=== PATIENT | male | born 1975 | race Caucasian/White ===

== ENCOUNTER 2018-05-07 22:30 | Emergency (ER) | payer BC, OTHER, SELFPAY ==
[2018-05-07] MEDS ORDERED: NA CHLORIDE 0.9% 1,000 ML ONE (23:06)
[2018-05-07 23:17] LABS: Absolute Lymphocytes (CBC) 2.7 K/uL (0.7-4.9); Absolute Monocytes 1.1 K/uL (0.1-1.3); Basophils % 0.8 % (0-1.3); Eosinophils % 2.4 % (0-4.4); Hematocrit 42.2 % (39.6-49.0); Lymphocytes % 26.6 % (15.3-44.8); MCH 30.8 pg (27.0-35.0); MPV 6.8 fL (7.6-11.3); Monocytes % 10.5 % (3.3-12.3); RBC Red Blood Cell Count 4.86 M/uL (4.33-5.43)
[2018-05-07 23:30] LABS: Potassium 3.9 mmol/L (3.5-5.1)
--- NOTE | 2018-05-08 02:41 | ER ---
Nurse's Notes [facility] Name: Maxime Kohli Age: 42 yrs Sex: Male : 1975 Arrival Date: 05/07/2018 Time: 22:32 Bed 18 Private MD: Diagnosis: Cellulitis and reactive adenitis right groin. Possible abscess Presentation: 05/07 22:45 Presenting complaint: Patient states: he has a lump on his right groin which is getting bb bigger and is red and painful since . Transition of care: patient was not received from another setting of care. Onset of symptoms was May 05, 2018. Risk Assessment: Do you want to hurt yourself or someone else? Patient reports no desire to harm self or others. Initial Sepsis Screen: Does the patient meet any 2 criteria? No. Patient's initial sepsis screen is negative. Does the patient have a suspected source of infection? No. Patient's initial sepsis screen is negative. Care prior to arrival: None. 22:45 Method Of Arrival: Ambulatory bb 22:45 Acuity: WILLIE 4 bb Historical: - Allergies: 22:47 Codeine; bb 22:47 PENICILLINS; bb - Home Meds: 22:47 None [Active]; bb - PMHx: 22:47 hypoglycemia; meningitis; bb - PSHx: 22:47 Hernia repair; Tonsillectomy; Ear Tubes; bb - Immunization history:: Adult Immunizations up to date. - Social history:: Smoking status: Patient/guardian denies using tobacco, Patient/guardian denies using alcohol, street drugs. - Ebola Screening: : No symptoms or risks identified at this time. Screenin:08 Abuse screen: Denies threats or abuse. Nutritional screening: No deficits noted. jd3 Tuberculosis screening: No symptoms or risk factors identified. Fall Risk IV access (20 points). Ambulatory Aid- None/Bed Rest/Nurse Assist (0 pts). Gait- Normal/Bed Rest/Wheelchair (0 pts) Mental Status- Oriented to own ability (0 pts). Total Suarez Fall Scale indicates No Risk (0-24 pts). Assessment: 22:49 General: Appears in no apparent distress. uncomfortable, Behavior is calm, cooperative, jd3 appropriate for age. Pain: Complains of pain in groin Quality of pain is described as aching. Neuro: Level of Consciousness is awake, alert, obeys commands, Oriented to person, place, time, situation, Appropriate for age. Cardiovascular: Capillary refill < 3 seconds Patient's skin is warm and dry. Respiratory: Airway is patent Respiratory effort is even, unlabored, Respiratory pattern is regular, symmetrical, Denies shortness of breath. GI: No signs and/or symptoms were reported involving the gastrointestinal system. : No signs and/or symptoms were reported regarding the genitourinary system. EENT: No signs and/or symptoms were reported regarding the EENT system. Derm: Skin is intact, Skin is dry, Skin is normal, Skin temperature is warm Wound noted groin Wound is lemon sized swollen area swollen and red. Musculoskeletal: Circulation, motion, and sensation intact. Range of motion: intact in all extremities. 23:27 Reassessment: Patient appears in no apparent distress at this time. Patient and/or jd3 family updated on plan of care and expected duration. Pain level reassessed. Patient is alert, oriented x 3, equal unlabored respirations, skin warm/dry/pink. 05/08 00:23 Reassessment: Patient appears in no apparent distress at this time. Patient and/or jd3 family updated on plan of care and expected duration. Pain level reassessed. Patient is alert, oriented x 3, equal unlabored respirations, skin warm/dry/pink. 00:56 Reassessment: Patient appears in no apparent distress at this time. Patient and/or jd3 family updated on plan of care and expected duration. Pain level reassessed. Patient is alert, oriented x 3, equal unlabored respirations, skin warm/dry/pink. 02:02 Reassessment: Patient appears in no apparent distress at this time. Patient and/or jd3 family updated on plan of care and expected duration. Pain level reassessed. Patient is alert, oriented x 3, equal unlabored respirations, skin warm/dry/pink. pt resting in bed, no distress noted at this time. 02:53 Reassessment: will discharge after Vancomycin infusion is complete. tl2 03:11 Reassessment: Patient appears in no apparent distress at this time. No changes from jd3 previously documented assessment. Patient and/or family updated on plan of care and expected duration. Pain level reassessed. Patient is alert, oriented x 3, equal unlabored respirations, skin warm/dry/pink. 03:40 Reassessment: Patient appears in no apparent distress at this time. No changes from jd3 previously documented assessment. Patient and/or family updated on plan of care and expected duration. Pain level reassessed. Patient is alert, oriented x 3, equal unlabored respirations, skin warm/dry/pink. 04:10 Reassessment: Patient appears in no apparent distress at this time. Patient and/or tl2 family updated on plan of care and expected duration. Pain level reassessed. Patient is alert, oriented x 3, equal unlabored respirations, skin warm/dry/pink. Pt verbalized understanding of discharge instructions, need for follow up and prescription usage. Vital Signs: 05/07 22:47 BP 126 / 87; Pulse 87; Resp 16 S; Temp 98.1(O); Pulse Ox 99% on R/A; Weight 108.86 kg bb (R); Height 5 ft. 10 in. (177.80 cm) (R); Pain 5/10; 23:27 BP 117 / 71; Pulse 86; Resp 16 S; Pulse Ox 97% on R/A; jd3 05/08 00:22 BP 105 / 62; Pulse 79; Resp 16 S; Pulse Ox 97% on R/A; jd3 00:55 BP 115 / 63; Pulse 76; Resp 16 S; Pulse Ox 97% on R/A; jd3 02:01 BP 110 / 68; Pulse 76; Pulse Ox 96% on R/A; jd3 02:55 BP 100 / 62; Pulse 74; Resp 17 S; Pulse Ox 95% on R/A; jd3 03:40 BP 119 / 83; Pulse 80; Resp 16 S; Pulse Ox 97% on R/A; jd3 04:10 BP 117 / 75; Pulse 77; Resp 18; Pulse Ox 97% on R/A; tl2 05/07 22:47 Body Mass Index 34.44 (108.86 kg, 177.80 cm) bb ED Course: 05/07 22:32 Patient arrived in ED. do 22:33 Devonte Blum MD is Attending Physician. pkl 22:44 Vidal Lyn RN is Primary Nurse. jd3 22:46 Triage completed. bb 22:47 Arm band placed on Patient placed in an exam room, on a stretcher, on pulse oximetry. bb Family accompanied patient. 23:05 Inserted saline lock: 20 gauge in right antecubital area, using aseptic technique. tl2 Blood collected. placed by lc Campos. 23:08 Patient has correct armband on for positive identification. Placed in gown. Bed in low jd3 position. Call light in reach. Side rails up X 1. Adult w/ patient. 05/08 00:58 Patient moved to [place] via wheelchair. kw1 01:07 CT Pelvis w cont In Process Unspecified. EDMS 01:09 CT completed. Patient tolerated procedure well. Patient moved back from [place]. kw1 02:39 Himanshu Davila MD is Referral Physician. pkl 04:10 No provider procedures requiring assistance completed. IV discontinued, intact, tl2 bleeding controlled, No redness/swelling at site. Pressure dressing applied. Administered Medications: 05/07 23:05 Drug: NS 0.9% 1000 ml Route: IV; Rate: 100 ml/hr; Site: right antecubital; jd3 05/08 04:12 Follow up: Response: No adverse reaction; IV Status: Order to discontinue infusion jd3 02:51 Drug: vancoMYCIN 1 grams Route: IVPB; Infused Over: 2 hrs; Site: right antecubital; jd3 04:12 Follow up: Response: No adverse reaction; IV Status: Completed infusion jd3 Outcome: 02:41 Discharge ordered by . pkl 04:12 Discharged to home ambulatory, with family. tl2 04:12 Condition: stable 04:12 Discharge instructions given to patient, family, Instructed on discharge instructions, follow up and referral plans. medication usage, Demonstrated understanding of instructions, follow-up care, medications, Prescriptions given X 2. 04:13 Patient left the ED. tl2 Signatures: Dispatcher [employer] Devonte Cartwright MD MD pkChuyita Dyer RN RN Aneta Bernal Taylor RN RN tl2 Vidal Lyn RN RN jd3 Gertrudis Valverde kw1
--- NOTE | 2018-05-08 02:42 | EDPHYS ---
Physician Documentation [facility] Name: Maxime Kohli Age: 42 yrs Sex: Male : 1975 Arrival Date: 05/07/2018 Time: 22:32 Bed 18 Private MD: ED Physician Devonte Blum HPI: 05/07 22:57 This 42 yrs old Male presents to ER via Ambulatory with complaints of Groin pkl Pain. 22:57 The patient presents with painful lump in right groin. Onset: The symptoms/episode pkl began/occurred 3 day(s) ago. Associated signs and symptoms: none. Historical: - Allergies: 22:47 Codeine; bb 22:47 PENICILLINS; bb - Home Meds: 22:47 None [Active]; bb - PMHx: 22:47 hypoglycemia; meningitis; bb - PSHx: 22:47 Hernia repair; Tonsillectomy; Ear Tubes; bb - Immunization history:: Adult Immunizations up to date. - Social history:: Smoking status: Patient/guardian denies using tobacco, Patient/guardian denies using alcohol, street drugs. - Ebola Screening: : No symptoms or risks identified at this time. ROS: 22:57 Eyes: Negative for injury, pain, redness, and discharge, ENT: Negative for injury, pkl pain, and discharge, Neck: Negative for injury, pain, and swelling, Cardiovascular: Negative for chest pain, palpitations, and edema, Respiratory: Negative for shortness of breath, cough, wheezing, and pleuritic chest pain. 22:57 Abdomen/GI: Positive for painful lump right groin. 22:57 Back: Negative for acute changes. 22:57 : Negative for urinary symptoms. 22:57 MS/extremity: Negative for acute changes. 22:57 Skin: Negative for rash. 22:57 Neuro: Negative for altered mental status. Exam: 22:57 Head/Face: Normocephalic, atraumatic. Eyes: Pupils equal round and reactive to light, pkl extra-ocular motions intact. Lids and lashes normal. Conjunctiva and sclera are non-icteric and not injected. Cornea within normal limits. Periorbital areas with no swelling, redness, or edema. ENT: Nares patent. No nasal discharge, no septal abnormalities noted. Tympanic membranes are normal and external auditory canals are clear. Oropharynx with no redness, swelling, or masses, exudates, or evidence of obstruction, uvula midline. Mucous membranes moist. Neck: Trachea midline, no thyromegaly or masses palpated, and no cervical lymphadenopathy. Supple, full range of motion without nuchal rigidity, or vertebral point tenderness. No Meningismus. Chest/axilla: Normal chest wall appearance and motion. Nontender with no deformity. No lesions are appreciated. Cardiovascular: Regular rate and rhythm with a normal S1 and S2. No gallops, murmurs, or rubs. Normal PMI, no JVD. No pulse deficits. Respiratory: Lungs have equal breath sounds bilaterally, clear to auscultation and percussion. No rales, rhonchi or wheezes noted. No increased work of breathing, no retractions or nasal flaring. 22:57 Abdomen/GI: Palpation: soft, mild pain right groin, possible cyst, lymph node or abscess. 22:57 Back: Exam negative for acute changes. 22:57 : Exam negative for acute changes. 22:57 Musculoskeletal/extremity: Exam is negative for acute changes. 22:57 Skin: Exam negative for rash. 22:57 Neuro: Orientation: is normal, Mentation: is normal, Cranial nerves: grossly normal, Motor: is normal. Vital Signs: 22:47 BP 126 / 87; Pulse 87; Resp 16 S; Temp 98.1(O); Pulse Ox 99% on R/A; Weight 108.86 kg bb (R); Height 5 ft. 10 in. (177.80 cm) (R); Pain 5/10; 23:27 BP 117 / 71; Pulse 86; Resp 16 S; Pulse Ox 97% on R/A; jd3 05/08 00:22 BP 105 / 62; Pulse 79; Resp 16 S; Pulse Ox 97% on R/A; jd3 00:55 BP 115 / 63; Pulse 76; Resp 16 S; Pulse Ox 97% on R/A; jd3 02:01 BP 110 / 68; Pulse 76; Pulse Ox 96% on R/A; jd3 02:55 BP 100 / 62; Pulse 74; Resp 17 S; Pulse Ox 95% on R/A; jd3 03:40 BP 119 / 83; Pulse 80; Resp 16 S; Pulse Ox 97% on R/A; jd3 04:10 BP 117 / 75; Pulse 77; Resp 18; Pulse Ox 97% on R/A; tl2 05/07 22:47 Body Mass Index 34.44 (108.86 kg, 177.80 cm) bb MDM: 05/07 22:33 Patient medically screened. pkl 05/08 02:39 Data reviewed: vital signs, nurses notes, lab test result(s), radiologic studies, CT pkl scan. 05/07 22:56 Order name: CBC with Diff; Complete Time: 23:20 pkl 05/07 22:56 Order name: Chem 7; Complete Time: 23:44 pkl 05/07 22:58 Order name: IV Saline Lock; Complete Time: 23:05 jd3 05/07 23:46 Order name: CT Pelvis w cont pkl Administered Medications: 05/07 23:05 Drug: NS 0.9% 1000 ml Route: IV; Rate: 100 ml/hr; Site: right antecubital; jd3 05/08 04:12 Follow up: Response: No adverse reaction; IV Status: Order to discontinue infusion jd3 02:51 Drug: vancoMYCIN 1 grams Route: IVPB; Infused Over: 2 hrs; Site: right antecubital; jd3 04:12 Follow up: Response: No adverse reaction; IV Status: Completed infusion jd3 Disposition: 05/08/18 02:41 Discharged to Home. Impression: Cellulitis and reactive adenitis right groin. Possible abscess. - Condition is Stable. - Prescriptions for Clindamycin HCl 300 mg Oral Capsule - take 1 capsule by ORAL route every 6 hours for 7 days; 28 capsule. Ultram 50 mg Oral Tablet - take 1 tablet by ORAL route every 8 hours As needed; 20 tablet. - Medication Reconciliation Form, Thank You Letter, Antibiotic Education, Prescription Opioid Use form. - Follow up: Himanshu Davila MD; When: 2 - 3 days; Reason: Re-evaluation by your physician. - Problem is new. - Symptoms are unchanged. Signatures: Dispatcher [employer] EDMS Devonte Blum MD MD pkl Chuyita Hyatt RN RN Ce Ferraro RN RN tl2 Vidal Lyn RN RN jd3 Corrections: (The following items were deleted from the chart) 04:13 02:41 05/08/2018 02:41 Discharged to Home. Impression: Cellulitis and reactive adenitis tl2 right groin. Possible abscess. Condition is Stable. Forms are Medication Reconciliation Form, Thank You Letter, Antibiotic Education, Prescription Opioid Use. Follow up: Dr. Himanshu Davila; When: 2 - 3 days; Reason: Re-evaluation by your physician. Problem is new. Symptoms are unchanged. pkl
[2018-05-08] MEDS ORDERED: VANCOMYCIN 1 GM/250 ML BAG ONE (02:51)
--- NOTE | 2018-05-08 12:27 | RAD REPORT ---
EXAM DESCRIPTION: CT - Pelvis W/Cont - 05/08/2018 6:45 am CLINICAL HISTORY: painful lump right groin COMPARISON: No comparisons TECHNIQUE: All CT scans are performed using dose optimization technique as appropriate and may inclu de automated exposure control or mA/KV adjustment according to patient size. FINDINGS: Enlarged lymph nodes are present in the right groin, largest measuring 14 mm and 18 mm. Sk in thickening with subcutaneous fat reticulation is seen in the region compatible with cellulitis. No drainable fluid collection seen. No extension of inflammatory changes into the pelvis. No hernia is present. IMPRESSION: Right groin cellulitis and adenitis is noted.
== END 2018-05-08 04:13 | disposition home or self-care (01) ==
LOC: ER 22:30
DX: L03.314 Cellulitis of groin (principal); I88.9 Nonspecific lymphadenitis, unspecified; Z88.6 Allergy status to analgesic agent; Z88.0 Allergy status to penicillin
CPT/HCPCS: 36415; 72193; 80048; 85025; 96361; 96365; 99284; J3370; J7030; Q9967

== ENCOUNTER 2020-11-05 09:46 | Observation (INO) | payer OTHER ==
--- OUTSIDE RECORDS SUMMARY | 2020-11-05 09:49 | XMS REPORT | Continuity of Care Document ---
:1975 Author Organization [facility] t Address [address] [place] [address] Care Team Providers Name Role Phone Lab, Fam Pob I Attending Clinician Unavailable Nurse, Urgent Attending Clinician Unavailable Doctor Unassigned, Name Attending Clinician Unavailable Problems This patient has no known problems. Allergies, Adverse Reactions, Alerts This patient has no known allergies or adverse reactions. Medications This patient has no known medications. Procedures This patient has no known procedures. Encounters Start End Encounter Admission Attending Care Care Encounter Source Date/Time Date/Time Type Type Clinicians Facility Department ID 2020-10-01 2020-10-01 Laboratory Lab, [facility] [id number] 17:46:00 18:06:00 Only Fam Pob I Health [id number] [place] [id number] [facility] [id number] [address]al [address] 2020-02-25 2020-02-25 Letter Nurse, [facility] [id number] 00:00:00 00:00:00 (Out) Urgent HEALTH [id number] [facility] [phone] Primary & [facility] Specialty Care 2020-02-24 2020-02-24 Laboratory Lab, [facility] [id number] 13:05:00 13:25:00 Only Fam Pob I Health [id number] [facility] [id number] nal [address] 2020-02-24 2020-02-24 Letter Doctor LASHONDA [id number] 00:00:00 00:00:00 (Out) Unassigned, SILVIO [id number] [place] [facility] [phone] [id number] Results This patient has no known results.
--- NOTE | 2020-11-05 10:25 | RAD REPORT ---
EXAM DESCRIPTION: CT - Ct Stroke Brain Wo Cont - 11/05/2020 10:17 am CLINICAL HISTORY: Numbness COMPARISON: none TECHNIQUE: Computed axial tomography of the head was obtained. All CT scans are performed using dose optimization technique as appropriate and may include automated exposure control or mA/KV adjustment according to patient size. FINDINGS: An intracranial bleed is not seen . The ventricles are normal in caliber. No extra-axial fluid collection is noted. Fluid within the sinuses/ mastoids is not seen. IMPRESSION: No acute intracranial abnormality is seen. If patient's symptoms persist MRI of the bra in would be recommended. Didi James of the emergency room was notified at 10:20 a.m. November 05, 2020
[2020-11-05 10:38] LABS: Absolute Lymphocytes (CBC) 2.3 K/uL (0.7-4.9); Basophils % 0.7 % (0-1.3); Lymphocytes % 25.1 % (15.3-44.8); MPV 6.8 fL (7.6-11.3); RBC Red Blood Cell Count 4.96 M/uL (4.33-5.43)
[2020-11-05 10:44] LABS: Protime INR 1.08
--- NOTE | 2020-11-05 11:33 | RAD REPORT ---
EXAM DESCRIPTION: Aimee Single View11/05/2020 11:10 am CLINICAL HISTORY: Chest pain COMPARISON: none FINDINGS: The lungs appear clear of acute infiltrate. The heart is normal size IMPRESSION: No acute abnormalities displayed
[2020-11-05 12:05] LABS: ALT/SGPT 61 U/L (12-78); AST/SGOT 27 U/L (15-37); Albumin 4.1 g/dL (3.4-5.0); Alkaline Phosphatase 83 U/L (45-117); BUN Blood Urea Nitrogen 12 mg/dL (7-18); Bicarbonate 26 mmol/L (21-32); Bilirubin Direct 0.1 mg/dL (0-0.2); Bilirubin Total 0.5 mg/dL (0.2-1.0); Glucose Level 102 mg/dL (74-106); NT PRO-BNP 8 pg/mL (<125); Potassium 3.9 mmol/L (3.5-5.1); Protein, Total 7.7 g/dL (6.4-8.2); Sodium Level 141 mmol/L (136-145); Troponin (Emerg Dept Use Only) < 0.02 ng/mL (0.0-0.045)
--- NOTE | 2020-11-05 12:10 | EDPHYS ---
Physician Documentation [facility] Name: Maxime Kohli Age: 45 yrs Sex: Male : 1975 Arrival Date: 11/05/2020 Time: 09:49 Bed 18 Private MD: ED Physician Ryan Wilcox HPI: 11/05 11:39 This 45 yrs old Male presents to ER via Ambulatory with complaints of Chest kb Pain. 11:39 The patient or guardian reports chest pain that is located primarily in the chest kb diffusely. Onset: yesterday. The pain does not radiate. Associated signs and symptoms: Pertinent positives: tingling/numbness to face and left side. The chest pain is described as a pressure, tightness. Duration: The patient or guardian reports a single episode, that is still ongoing. Modifying factors: The symptoms are alleviated by nothing. the symptoms are aggravated by nothing. Severity of pain: At its worst the pain was mild moderate in the emergency department the pain is unchanged. The patient has experienced a previous episode. The patient has been recently seen by a physician: the ER physician, out of Town, 1 week(s) ago. Pt reports chest pain that started yesterday at 0900. States it has been constant since onset. Today pt was sitting at desk and started having tingling/numbness to face and left side with blurry vision. States symptoms lasted about 20 minutes. States during that time he was unable to talk or move and then he felt confused. States his bp has been running high (140s/100s) since yesterday. Had high bp and chest pain last week as well, was evaluated by [place] and sent home. . Historical: - Allergies: 09:59 Codeine; hb 09:59 PENICILLINS; hb - PMHx: 09:59 HYPOGLYCEMIA; meningitis; hb - PSHx: 09:59 Hernia repair; Tonsillectomy; Ear Tubes; hb - Immunization history:: Adult Immunizations up to date. - Social history:: Smoking status: unknown. ROS: 11:38 Constitutional: Negative for fever, chills, and weight loss, Respiratory: Negative for kb shortness of breath, cough, wheezing, and pleuritic chest pain, Abdomen/GI: Negative for abdominal pain, nausea, vomiting, diarrhea, and constipation, MS/Extremity: Negative for injury and deformity, Skin: Negative for injury, rash, and discoloration. 11:38 Cardiovascular: Positive for chest pain, Negative for edema, orthopnea, palpitations, paroxysmal nocturnal dyspnea. 11:38 Neuro: Positive for numbness, tingling, visual changes, weakness. Exam: 11:39 Constitutional: This is a well developed, well nourished patient who is awake, alert, kb and in no acute distress. Head/Face: Normocephalic, atraumatic. Chest/axilla: Normal chest wall appearance and motion. Cardiovascular: Regular rate and rhythm with a normal S1 and S2. No gallops, murmurs, or rubs. No pulse deficits. Respiratory: Respirations even and unlabored. No increased work of breathing, no retractions or nasal flaring. Abdomen/GI: Soft, non-tender. No distention Skin: Warm, dry with normal turgor. Normal color. MS/ Extremity: Pulses equal, no cyanosis. Neurovascular intact. Full, normal range of motion. Neuro: Awake and alert, GCS 15, oriented to person, place, time, and situation. Moves all extremities. Normal gait. Vital Signs: 10:01 BP 131 / 95; Pulse 89; Resp 20; Temp 98; Pulse Ox 99% ; Weight 117.93 kg; Height 5 ft. hb 10 in. (177.80 cm); 10:12 BP 143 / 93; Pulse 84; Resp 18; Pulse Ox 99% ; bw 11:05 BP 121 / 78; Pulse 81; Resp 20; Pulse Ox 98% on R/A; bw 13:11 BP 152 / 85; Pulse 97; Resp 26; Pulse Ox 97% on R/A; bw 10:01 Body Mass Index 37.30 (117.93 kg, 177.80 cm) hb MDM: 10:03 Patient medically screened. kb 11:37 Data reviewed: vital signs, nurses notes. Data interpreted: Pulse oximetry: on room air kb is 98 %. Interpretation: normal. 12:06 The patient was given aspirin in the Emergency Department. Counseling: I had a detailed kb discussion with the patient and/or guardian regarding: the historical points, exam findings, and any diagnostic results supporting the discharge/admit diagnosis, lab results, radiology results, the need for further work-up and treatment in the hospital. 11/05 10:04 Order name: Basic Metabolic Panel; Complete Time: 12:06 kb 11/05 10:04 Order name: CBC with Diff; Complete Time: 10:45 kb 11/05 10:04 Order name: LFT's; Complete Time: 12:06 kb 11/05 10:04 Order name: Magnesium; Complete Time: 12:06 kb 11/05 10:04 Order name: NT PRO-BNP; Complete Time: 12:06 kb 11/05 10:04 Order name: PT-INR; Complete Time: 10:48 kb 11/05 10:04 Order name: Troponin (emerg Dept Use Only); Complete Time: 12:06 kb 11/05 10:04 Order name: XRAY Chest (1 view); Complete Time: 11:34 kb 11/05 10:04 Order name: EKG; Complete Time: 10:05 kb 11/05 10:04 Order name: CT Stroke Brain w/o Contrast; Complete Time: 10:35 kb 11/05 13:57 Order name: SARS-COV-2 RT PCR; Complete Time: 14:08 EDMS 11/05 15:26 Order name: Troponin I; Complete Time: 15:32 EDMS 11/05 10:04 Order name: Cardiac monitoring; Complete Time: 10:35 kb 11/05 10:04 Order name: EKG - Nurse/Tech; Complete Time: 10:35 kb 11/05 10:04 Order name: IV Saline Lock; Complete Time: 10:35 kb 11/05 10:04 Order name: Labs collected and sent; Complete Time: 10:35 kb 11/05 10:04 Order name: O2 Per Protocol; Complete Time: 10:35 kb 11/05 10:04 Order name: O2 Sat Monitoring; Complete Time: 10:35 kb 11/05 10:43 Order name: Labs - recollect needed: recollect c7; Complete Time: 11:29 bd Administered Medications: 12:44 Drug: Aspirin Chewable Tablet 324 mg Route: PO; bw 17:10 Follow up: Response: No adverse reaction bw Disposition: 18:18 Co-signature as Attending Physician, Ryan Wilcox MD. rn Disposition: 11/05/20 12:09 Hospitalization ordered by Ranjit Velazquez for Observation. Preliminary diagnosis is Chest pain, unspecified. - Bed requested for Telemetry/MedSurg (Inpatient). - Status is Observation. bw - Condition is Stable. - Problem is new. - Symptoms have improved. Signatures: Dispatcher [employer] EDMS Jacob Didi, GRADES 6 THROUGH 8 TEACHER-C GRADES 6 THROUGH 8 TEACHER-Ckb Lili Rodriguez Stephanie, RN RN sv Ryan Wilcox MD MD rn Baxter, Heather, BARNEY CORLEY Sandoval, BARNEY Tamez RN bw Corrections: (The following items were deleted from the chart) 13:19 12:10 CORONAVIRUS+MR.LAB.BRZ ordered. EDCA EDMS 14:31 12:09 Hospitalization Ordered by Ranjit Velazquez for Observation. Preliminary diagnosis sv is Chest pain, unspecified. Bed requested for Telemetry/MedSurg (observation). Status is Observation. Condition is Stable. Problem is new. Symptoms have improved. kb 16:14 14:31 11/05/2020 12:09 Hospitalization Ordered by Ranjit Velazquez for Observation. sv Preliminary diagnosis is Chest pain, unspecified. Bed requested for [facility] ER HOLD. Status is Observation. Condition is Stable. Problem is new. Symptoms have improved. sv 17:11 16:14 11/05/2020 12:09 Hospitalization Ordered by Ranjit Velazquez for Observation. bw Preliminary diagnosis is Chest pain, unspecified. Bed requested for Telemetry/MedSurg (Inpatient). Status is Observation. Condition is Stable. Problem is new. Symptoms have improved. sv
--- NOTE | 2020-11-05 12:10 | ER ---
Nurse's Notes [facility] Name: Maxime Kohli Age: 45 yrs Sex: Male : 1975 Arrival Date: 11/05/2020 Time: 09:49 Bed 18 Private MD: Diagnosis: Chest pain, unspecified Presentation: 11/05 09:57 Chief complaint: Patient states: HTN has been ongoing, sitting at the computer today hb and started having chest tightness (started yesterday), blurry vision, left sided facial numbness and upper and lower lips, BP 146/101 today at 0915. Reports the only symptoms at this time are feeling flushed and chest tightness. Onset of symptoms was November 05, 2020. 09:57 Method Of Arrival: Ambulatory hb 09:57 Acuity: WILLIE 2 hb 10:01 Coronavirus screen: Client denies travel out of the [place] in the last 14 days. At this hb time, the client does not indicate any symptoms associated with coronavirus-19. Ebola Screen: No symptoms or risks identified at this time. Initial Sepsis Screen: Does the patient meet any 2 criteria? No. Patient's initial sepsis screen is negative. Does the patient have a suspected source of infection? No. Patient's initial sepsis screen is negative. Risk Assessment: Do you want to hurt yourself or someone else? Patient reports no desire to harm self or others. Triage Assessment: 17:09 General: Appears in no apparent distress. Behavior is calm, cooperative, appropriate bw for age. Pain:. Historical: - Allergies: 09:59 Codeine; hb 09:59 PENICILLINS; hb - PMHx: 09:59 HYPOGLYCEMIA; meningitis; hb - PSHx: 09:59 Hernia repair; Tonsillectomy; Ear Tubes; hb - Immunization history:: Adult Immunizations up to date. - Social history:: Smoking status: unknown. Screenin:12 Abuse screen: Denies threats or abuse. Nutritional screening: No deficits noted. bw Tuberculosis screening: No symptoms or risk factors identified. Fall Risk None identified. Assessment: 10:12 Pain: Pain radiates to left side of jaw Pain began 3 hours ago. Neuro: Reports numbness bw in left side of face. Cardiovascular: Rhythm is regular Chest pain is described as vague, is located in left chest wall. Respiratory: No deficits noted. GI: No deficits noted. : No deficits noted. 11:05 Reassessment: Patient appears in no apparent distress at this time. Patient and/or bw family updated on plan of care and expected duration. Pain level reassessed. Patient is alert, oriented x 3, equal unlabored respirations, skin warm/dry/pink. 13:11 Reassessment: Patient appears in no apparent distress at this time. Patient and/or bw family updated on plan of care and expected duration. Pain level reassessed. Patient is alert/active/playful, equal unlabored respirations, skin warm/dry/pink. 13:35 Reassessment: Called Dr Velazquez to get admission orders placed. sv Vital Signs: 10:01 BP 131 / 95; Pulse 89; Resp 20; Temp 98; Pulse Ox 99% ; Weight 117.93 kg; Height 5 ft. hb 10 in. (177.80 cm); 10:12 BP 143 / 93; Pulse 84; Resp 18; Pulse Ox 99% ; bw 11:05 BP 121 / 78; Pulse 81; Resp 20; Pulse Ox 98% on R/A; bw 13:11 BP 152 / 85; Pulse 97; Resp 26; Pulse Ox 97% on R/A; bw 10:01 Body Mass Index 37.30 (117.93 kg, 177.80 cm) hb ED Course: 09:49 Patient arrived in ED. ds1 09:57 Arm band placed on. hb 09:59 Triage completed. hb 10:02 Joi Sandoval, RN is Primary Nurse. bw 10:03 [facility] kb 10:03 Ryan Wilcox MD is Attending Physician. kb 10:12 Patient has correct armband on for positive identification. Call light in reach. Side bw rails up X2. case monitor on. Pulse ox on. NIBP on. Warm blanket given. 10:12 No provider procedures requiring assistance completed. Patient maintains SpO2 bw saturation greater than 95% on room air. 10:15 CT Stroke Brain w/o Contrast In Process Unspecified. EDMS 10:35 Initial lab(s) drawn, by me, sent to lab. EKG done, by ED staff, reviewed by Ryan Wilcox MD. Inserted saline lock: 20 gauge in right antecubital area, using aseptic technique. Blood collected. 11:01 XRAY Chest (1 view) Sent. bw 11:10 XRAY Chest (1 view) In Process Unspecified. EDMS 12:08 Ranjit Velazquez is Hospitalizing Provider. kb 12:27 COVID swab sent to lab. jp3 17:09 Patient admitted, IV remains in place. bw Administered Medications: 12:44 Drug: Aspirin Chewable Tablet 324 mg Route: PO; bw 17:10 Follow up: Response: No adverse reaction bw Outcome: 12:09 Decision to Hospitalize by Provider. kb 17:09 Admitted to Tele accompanied by tech. bw 17:09 Condition: stable 17:09 Discharge instructions given to patient. 17:11 Patient left the ED. Signatures: Dispatcher [employer] EDAR Didi James, PRIMARY CARE PHYSICIAN-C PRIMARY CARE PHYSICIAN-CkMajo Barnes, RN RN Zonia Joy ds1 Tarsha Crump RN RN Minh Mckeon, RN RN sr5 Scot Jones jp3 Joi Sandoval RN RN Corrections: (The following items were deleted from the chart) 10:00 09:57 Chief complaint: Patient states: HTN has been ongoing, sitting at the computer hb today and started having chest tightness, blurry vision, left sided facial numbness and upper and lower lips, BP 146/101. hb 10:02 09:57 Chief complaint: Patient states: HTN has been ongoing, sitting at the computer hb today and started having chest tightness (started yesterday), blurry vision, left sided facial numbness and upper and lower lips, BP 146/101 today at 0915 hb
[2020-11-05] MEDS ORDERED: ASPIRIN 81 MG CHEWABLE TABLET ONE (12:40)
--- NOTE | 2020-11-05 14:27 | P.HP ---
Certification for Inpatient Patient admitted to: Observation With expected LOS: <2 Midnights Practitioner: I am a practitioner with admitting privileges, knowledge of patient current condition, hospital course, and medical plan of care. Services: Services provided to patient in accordance with Admission requirements found in Title 42 Section 412.3 of the Code of Federal Regulations Patient History Date of Service: 11/05/20 Reason for admission: Chest pain, left-sided numbness. History of Present Illness: 45-year-old morbidly obese gentleman with a history of hypothyroidism, gout and recurrent hypoglycemia presented to the emergency department with a complaint of chest pain of sudden onset followed by tingling and numbness in the left face, left arm and leg and transient confusion. These symptoms occurred at the workplace. He was driven to the emergency department by his colleague. Patient described tightness in the anterior chest, associated with shortness of breath. He denied palpitation. He reports an episode of chest pain about 1 month ago for which he went to [place] emergency department for evaluation. Patient report nothing significant was communicated to him at [place]. emergency department. His numbness and tingling sensation resolved in the emergency department but was reporting residual chest tightness during my examination. EKG demonstrates sinu s rhythm with nonspecific ST-T changes. Initial troponin is negative. CT reports no acute intracranial changes. Chest x-ray shows no acute disease. Patient is placed under observation for TIA/stroke, and chest pain workup. Allergies codeine Allergy (Verified 11/05/20 13:24) Hives Penicillins Allergy (Verified 11/05/20 13:24) Hives - Past Medical/Surgical History -: Hypothyroidism -: Gout - Family History Mother -: Other (see notes) (Was abusing drugs) - Social History Smoking Status: Never smoker Alcohol use: No CD- Drugs: No Place of Residence: Home Review of Systems Other: Except as documented, all other systems reviewed and negative. Physical Examination - Physical Exam General: Alert, In no apparent distress, Oriented x3 HEENT: Normocephalic, PERRLA, Mucous membr. moist/pink, EOMI, Sclerae nonicteric Neck: Supple, 2+ carotid pulse no bruit, JVD not distended Respiratory: Clear to auscultation bilaterally, Normal air movement Cardiovascular: No edema, Normal pulses, Regular rate/rhythm, Normal S1 S2 Capillary refill: <2 Seconds Gastrointestinal: Normal bowel sounds, Soft and benign, Non-distended, No tenderness Musculoskeletal: No swelling, No tenderness Integumentary: No rashes, No erythema Neurological: Normal speech, Normal strength at 5/5 x4 extr, Cranial nerves 3-12 intact - Studies Laboratory Data (last 24 hrs) 11/05/20 11:28: Sodium 141, Potassium 3.9, BUN 12, Creatinine 0.84, Glucose 102, Magnesium 2.0, Total Bilirubin 0.5, AST 27, ALT 61, Alkaline Phosphatase 83 11/05/20 10:29: PT 12.4, INR 1.08 11/05/20 10:29: WBC 9.10, Hgb 15.3, Hct 43.0, Plt Count 180 Assessment and Plan - Problems (Diagnosis) (1) Chest pain Current Visit: Yes Status: Acute (2) TIA (transient ischemic attack) Current Visit: Yes Status: Acute (3) Gout Current Visit: Yes Status: Acute (4) Hypothyroidism Current Visit: Yes Status: Acute - Plan Place under observation. Trend troponin Start aspirin and lipids Obtain echocardiogram. Nuclear stress test if troponin trend negative. MRI of the brain to rule out acute CVA. Continue home dose Allopurinol. Continue home dose Synthroid. Check TSH Check lipid profile. Monitor blood pressure and treat for systolic greater than 160. - Advance Directives Does patient have a Living Will: No Does patient have a Durable POA for Healthcare: No
[2020-11-05] MEDS ORDERED: NITROGLYCERIN 0.4 MG/TAB SL PRN (14:41)
[2020-11-05] MEDS ORDERED: ONDANSETRON 4 MG/2 ML VIAL IV PRN (14:41)
[2020-11-05] MEDS ORDERED: ACETAMINOPHEN 500 MG TAB PO PRN (14:41)
[2020-11-05] MEDS: NA CHLORIDE 0.9% 1,000 ML IV SCH (15:00)
[2020-11-05 15:09] VITALS: BMI 37.3
[2020-11-05] MEDS ORDERED: NA CHLORIDE 0.9% 1,000 ML ONE (15:43)
--- NOTE | 2020-11-05 17:39 | RAD REPORT ---
EXAM DESCRIPTION: MRI - Brain Wo Cont - 11/05/2020 4:23 pm CLINICAL HISTORY: left sided numbness r/o CVA Headache, drowsiness, CVA symptomology COMPARISON: Ct Stroke Brain Wo Cont dated 11/05/2020 TECHNIQUE: Multi-sequence, multiplanar MR imaging of the brain was performed without contrast. FINDINGS: No intracranial hemorrhage, hydrocephalus or extra-axial fluid collections. No edema or sh ift of midline structures. No findings to suspect brain mass. DWI is negative for acute CVA. Midline structures are normally formed. Mastoid air cells and paranasal sinuses are clear. IMPRESSION: No acute or concerning intracranial abnormalities.
[2020-11-05] MEDS ORDERED: ATORVASTATIN 40 MG TAB PO SCH (21:00)
[2020-11-05 22:09] VITALS: O2SAT 95
[2020-11-06] MEDS: NA CHLORIDE 0.9% 1,000 ML IV SCH (05:50)
[2020-11-06 05:59] LABS: Phosphorus 3.9 mg/dL (2.5-4.9); Potassium 4.2 mmol/L (3.5-5.1); Thyroid Stimulating Hormone 2.77 uIU/mL (0.360-3.740)
[2020-11-06] MEDS ORDERED: LEVOTHYROXINE SOD 0.088 MG TAB PO SCH (06:30)
[2020-11-06 08:58] LABS: Absolute Lymphocytes (CBC) 2.3 K/uL (0.7-4.9); Basophils % 0.6 % (0-1.3); Hematocrit 42.7 % (39.6-49.0); Lymphocytes % 27.3 % (15.3-44.8); MPV 7.5 fL (7.6-11.3); RBC Red Blood Cell Count 4.82 M/uL (4.33-5.43)
[2020-11-06] MEDS ORDERED: ENOXAPARIN 40 MG/0.4 ML SQ SCH (09:00)
[2020-11-06] MEDS ORDERED: ASPIRIN EC 81 MG TAB PO SCH (09:00)
[2020-11-06] MEDS ORDERED: allopurinoL 300 MG TAB PO SCH (09:00)
[2020-11-06] MEDS ORDERED: REGADENOSON 0.4 MG/5 ML SYR IV ONE (11:53)
--- NOTE | 2020-11-06 12:50 | EKG ---
Test Date: 2020-11-05 Test Time: 10:07:18 Electric Repair Supervisor: CAROLYNN MEASUREMENT RESULTS: Intervals: Rate: 85 DC: 148 QRSD: 92 QT: 352 QTc: 418 Dania: P: 16 DC: 148 QRS: 41 T: 15 INTERPRETIVE STATEMENTS: Normal sinus rhythm Nonspecific T wave abnormality Abnormal ECG No previous ECG available for comparison Electronically Signed On 11-06-20 12:45:52 CDT by Timothy Mckeon
--- NOTE | 2020-11-06 12:58 | ECHO ---
HEIGHT: 5 ft 10 in WEIGHT: 260 lb 0 oz DATE OF STUDY: 11/06/[address]: annemarie scott 2-DIMENSIONAL: YES M.MODE: YES DOPPLER: YES COLOR FLOW: YES TDS: NO PORTABLE: NO DEFINITY: NO BUBBLE STUDY: NO DIAGNOSIS: STROKE CARDIAC HISTORY: CATHERIZATION: NO SURGERY: NO PROSTHETIC VALVE: NO PACEMAKER: NO MEASUREMENTS (cm) DIASTOLIC (NORMALS) SYSTOLIC (NORMALS) IVSd 1.1 (0.6-1.2) LA Diam 3.1 (1.9-4.0) LVEF 54% LVIDd 4.9 (3.5-5.7) LVIDs 3.5 (2.0-3.5) %FS 28% LVPWd 1.2 (0.6-1.2) Ao Diam 3.2 (2.0-3.7) 2 DIMENSIONAL ASSESSMENT: RIGHT ATRIUM: NORMAL LEFT ATRIUM: NORMAL RIGHT VENTRICLE: NORMAL LEFT VENTRICLE: NORMAL TRICUSPID VALVE: NORMAL MITRAL VALVE: NORMAL PULMONIC VALVE: NORMAL AORTIC VALVE: NORMAL PERICARDIAL EFFUSION: NONE AORTIC ROOT: NORMAL LEFT VENTRICULAR WALL MOTION: NORMAL DOPPLER/COLOR FLOW: NORMAL COMMENTS: NORMAL 2D ECHOCARDIOGRAM WITH DOPPLER. NO WALL MOTION ABNORMALITY. NO VEGETATION. NO THROMBUS. NO ATRIAL SEPTAL DEFECT. TECHNOLOGIST: Nahid HAYNES
--- NOTE | 2020-11-06 14:34 | RAD REPORT ---
EXAM DESCRIPTION: NM - Rest Stress Cardiac Imaging - 11/06/2020 2:28 pm CLINICAL HISTORY: Chest pain COMPARISON: None. TECHNIQUE: The patient was administered 10.4 mCi of Tc 99m Sestamibi prior to resting SPECT imaging of the heart. The patient was then administered 31.5 mCi of Tc 99m Sestamibi following exercise or ph armacologic stress. Multiplanar SPECT images were reviewed. FINDINGS: The end diastolic volume is 105 ml, the end systolic volume is 45 ml, and the ejection fra ction is 57 %. Physiologic distribution of the radiopharmaceutical through the myocardium is noted. No stress induce d ischemic defect is seen to suggest stress induced ischemia. No fixed defect is seen to suggest hibe rnating myocardium or scarred myocardium. IMPRESSION: No stress induced ischemia or other suspicious findings. Ventricular volumes and ejection fraction are normal range.
[2020-11-06 14:47] VITALS: BP 124/76; TEMP 97.9
--- NOTE | 2020-11-06 14:58 | P.DS ---
Admission Date: 11/05/20 Discharge Date: 11/06/20 Disposition: ROUTINE DISCHARGE Discharge Condition: FAIR Reason for Admission: Chest pain, left-sided numbness. - Problems (1) Chest pain Current Visit: Yes Status: Acute (2) TIA (transient ischemic attack) Current Visit: Yes Status: Acute (3) Gout Current Visit: Yes Status: Acute (4) Hypothyroidism Current Visit: Yes Status: Acute Brief History of Present Illness: 45-year-old morbidly obese gentleman with a history of hypothyroidism, gout and recurrent hypoglycemia presented to the emergency department with a complaint of chest pain of sudden onset followed by tingling and numbness in the left face, left arm and leg and transient confusion. These symptoms occurred at the workplace. He was driven to the emergency department by his colleague. Patient described tightness in the anterior chest, associated with shortness of breath. He denied palpitation. He reports an episode of chest pain about 1 month ago for which he went to [place] emergency department for evaluation. Patient report nothing significant was communicated to him at [place]. emergency department. His numbness and tingling sensation resolved in the emergency department but was reporting residual chest tightness during my examination. EKG demonstrates sinus rhythm with nonspecific ST-T changes. Initial troponin is negative. CT reports no acute intracranial changes. Chest x-ray shows no acute disease. Patient placed under observation for TIA/stroke, and chest pain workup. Hospital Course: Troponin trended negative. Nuclear stress test was done which reported no stress-induced ischemia. ACS ruled out. LDL level is 88. Low-fat low- cholesterol diet advised. MRI of the brain was done which was negative for acute CVA. Echocardiogram unremarkable, normal EF and no clot. His blood pressure fluctuated but generally stable. Patient deemed clinically stable. He is discharged with daily aspirin. I advised him to stop taking the phentermine which could be contributing to his nonspecific symptoms. Vital Signs/Physical Exam: Temp Pulse Resp BP Pulse Ox 97.9 F 92 H 20 124/76 95 11/06/20 12:00 11/06/20 12:00 11/06/20 12:00 11/06/20 12:00 11/06/20 12:00 General: Alert, In no apparent distress, Oriented x3 HEENT: Mucous membr. moist/pink Neck: Supple, JVD not distended Respiratory: Clear to auscultation bilaterally, Normal air movement Cardiovascular: No edema, Regular rate/rhythm, Normal S1 S2 Gastrointestinal: Soft and benign, Non-distended, No tenderness Musculoskeletal: No swelling, No tenderness Integumentary: No rashes Neurological: Normal speech, Normal strength at 5/5 x4 extr, Cranial nerves 3-12 intact Laboratory Data at Discharge: WBC 8.50 K/uL (4.3-10.9) 11/06/20 05:04 Hgb 14.6 g/dL (13.6-17.9) 11/06/20 05:04 Hct 42.7 % (39.6-49.0) 11/06/20 05:04 Plt Count 163 K/uL (152-406) 11/06/20 05:04 PT 12.4 SECONDS (9.5-12.5) 11/05/20 10:29 INR 1.08 11/05/20 10:29 Sodium 141 mmol/L (136-145) 11/06/20 05:04 Potassium 4.2 mmol/L (3.5-5.1) 11/06/20 05:04 BUN 14 mg/dL (7-18) 11/06/20 05:04 Creatinine 0.92 mg/dL (0.55-1.3) 11/06/20 05:04 Glucose 104 mg/dL (74-106) 11/06/20 05:04 Phosphorus 3.9 mg/dL (2.5-4.9) 11/06/20 05:04 Magnesium 2.0 mg/dL (1.8-2.4) 11/06/20 05:04 Total Bilirubin 0.5 mg/dL (0.2-1.0) 11/05/20 11:28 AST 27 U/L (15-37) 11/05/20 11:28 ALT 61 U/L (12-78) 11/05/20 11:28 Alkaline Phosphatase 83 U/L (45-117) 11/05/20 11:28 Troponin I < 0.02 ng/mL (0.0-0.045) 11/05/20 19:05 Triglycerides 145 mg/dL (<150) 11/06/20 05:04 Cholesterol 148 mg/dL (<200) 11/06/20 05:04 HDL Cholesterol 31 mg/dL (40-60) L 11/06/20 05:04 Cholesterol/HDL Ratio 4.77 11/06/20 05:04 Home Medications: Allopurinol 300 mg PO DAILY 11/05/20 Levothyroxine [Synthroid*] 0.088 mg PO DAILY 11/05/20 Aspirin [Aspirin EC 81 MG] 81 mg PO DAILY #30 tablet. 11/06/20 New Medications: Aspirin [Aspirin EC 81 MG] 81 mg PO DAILY #30 tablet. Diet: AHA Activity: Ad griselda Followup: Bandar Jordan MD [Primary Care Provider] - 1-2 Weeks
--- NOTE | 2020-11-07 09:55 | TREADPHA ---
DX: CHEST PAIN Date of Study: 11/06/2020 Ht: 5' 10 " Wt: 260 lb 0 oz Consulting Physician: RENEE MEDICATIONS: PHENTERMINE HISTORY: NONE PHYSICIAL EXAMINATION: RESTING B.P.: 137/90 RESTING H.R.: 84 RESTING EKG: NORMAL PROTOCOL: PHARMACOLOGIC EXERCISE TIME: 3:30 B.P. AT [place] STRESS: 129/70 IMPRESSION: LEXISCAN STRESS TEST PERFORMED. CARDIOLITE INJECTED PER PROTOCOL. SEE NUCLEAR MEDICINE REPORT. NO SUPRAVENTRICULAR TACHYCARDIA. NO VENTRICULAR TACHYCARDIA. NO ARRHYTHMIAS NOTED. RESPIRIATORY EVEN NONLABORED. PATIENT TOLERATED WELL. LEXISCAN PENDING.
== END 2020-11-06 15:54 | disposition home or self-care (01) ==
LOC: ER 09:46 → ERHOLD 14:14 → 2ND 17:04
PROVIDERS: ADMIT Internal Medicine; ATTEND Internal Medicine
DX: R07.9 Chest pain, unspecified (principal); G45.9 Transient cerebral ischemic attack, unspecified; E03.9 Hypothyroidism, unspecified; Z20.822 Contact with and (suspected) exposure to COVID-19; R94.31 Abnormal electrocardiogram [ECG] [EKG]; M10.9 Gout, unspecified; E66.01 Morbid (severe) obesity due to excess calories
CPT/HCPCS: 36415; 70450; 70551; 71045; 78452; 80048; 80061; 80076; 82947; 83735; 83880; 84100; 84443; 84484; 85025; 85610; 85652; 93005; 93017; 93306; 97116; 97161; 99285; A9500; G0378; J1650; J2785; J7030; U0003